=== PATIENT | female | born 1990 | race Caucasian/White ===

== ENCOUNTER 2017-06-09 12:24 | Outpatient (CLI) | payer OTHER ==
[~2017-06-09] VITALS: Ht 149.9 cm; Wt 61.5 kg
[2017-06-09 12:35] VITALS: BP 120/71; PULSE 85; RESP 19; Ht 149.9 cm; Wt 61.5 kg
[2017-06-09] MEDS ORDERED: PREN1TAB79 PO (12:37)
--- NOTE | 2017-06-09 12:56 | TRIAGE ---
OB Triage Datetime Report Generated by CPN: 06/09/2017 12:52 Datetime: 06/09/2017 12:36 Maternal Assessment Level of Consciousness: Fully Conscious DTR's/Clonus: DTRs 1+ Headache: Denies Blurred Vision: No Respiratory Effort: Unlabored Breath Sounds, Left: Clear and Equal Breath Sounds, Right: Clear and Equal Nausea/Vomiting: Denies RUQ Epigastric Pain: Denies Facial Edema: None Labor Evaluation Frequency: NONE Monitor Mode: External Resting Tone [place]: Relaxed Heart Rate FHR Baseline Rate: 150 Variability: Moderate 6-25 bpm Accelerations: 10X10 Decelerations: None Category: Category I Comments: REACTIVE ACCORDING TO AGE Vaginal Exam Membrane Status: Intact Datetime: 06/09/2017 12:32 EGA: 20.3 Datetime: 06/09/2017 12:30 Assessment Type: Triage Maternal Assessment Level of Consciousness: Fully Conscious DTR's/Clonus: DTRs 2+; No Clonus Headache: Denies Blurred Vision: No Respiratory Effort: Unlabored; Regular Rhythm; Equal Expansion Breath Sounds, Left: Clear and Equal Breath Sounds, Right: Clear and Equal Nausea/Vomiting: Denies RUQ Epigastric Pain: Denies Lower Extremities Edema: None Degree: None Upper Extremities Edema: None Degree: None Facial Edema: None Fall Risk Assessment History of Falling: (0) No Secondary Diagnosis: (0) No Ambulatory Aid: (0) Bedrest/Nurse Assist IV Therapy: (0) No Gait: (0) Normal/Bedrest/Immobile Mental Status: (0) Oriented to Own Ability Fall Score: 0 Fall Risk Score Definition: No Risk: No action required Datetime: 06/09/2017 12:19 Time of Arrival: 06/09/2017 12:19 Arrived By: Ambulatory Arrived From: [facility] Chief Complaint: PT CAME IN FROM CLINIC BECAUSE THEY COULDN'T FIND HEART TONES. Movement: Present Contractions: Denies/Absent Rupture of Membranes: Denies Vaginal Discharge: Denies Recent Sexual Intercouse: Denies Abdominal Trauma: Not Applicable Patient Complaints: Other Additional Patient Complaints: NONE Time Provider Notified: 06/09/2017 12:32 Provider Notified: UAJE Initial Plan: MONITOR Datetime: 06/09/2017 12:18 Heart Rate FHR Baseline Rate: 150 Comments: EFM Datetime: 06/09/2017 12:17 Heart Rate FHR Baseline Rate: 150 Monitor Mode: Doppler Comments: HEART SOUND WITH DOPPLER
--- NOTE | 2017-06-09 13:13 | PN ---
Triage Information Date/Time Reason for visit: Weeks of Gestation 20w 3d /Para Objective Vital Signs Date Time Temp Pulse Resp B/P Pulse Ox O2 Delivery O2 Flow Rate FiO2 06/09/17 12:35 97.5 85 19 120/71 Room Air Heart Rate Comments +doptones Contractions: None Disposition: Discharge PALAK BRITO Jun 09, 2017 13:13
== END 2017-06-09 12:53 | disposition home or self-care (01) ==
LOC: OBT 12:24 → L-D 12:26 → OBT 12:53
PROVIDERS: ATTEND Obstetrics & Gynecology
DX: O76 Abnormality in fetal heart rate and rhythm complicating labor and delivery (principal); Z3A.20 20 weeks gestation of pregnancy
CPT/HCPCS: G0463

== ENCOUNTER 2017-10-11 08:25 | Inpatient (IN) | END 2017-10-13 15:40 | disposition home or self-care (01) | DRG 781 ==

== ENCOUNTER 2017-10-16 10:19 | Outpatient (CLI) | END 2017-10-16 15:15 | disposition home or self-care (01) ==

== ENCOUNTER 2017-10-19 09:33 | Outpatient (CLI) | END 2017-10-19 11:23 | disposition home or self-care (01) ==

== ENCOUNTER 2017-10-23 12:00 | Inpatient (IN) | END 2017-10-27 14:50 | disposition home or self-care (01) | DRG 775 ==